=== PATIENT | female | born 1950 | race Caucasian/White ===

== ENCOUNTER → 2017-05-04 | Outpatient (CLI) | payer OTHER ==
--- NOTE | 2017-05-04 11:25 | RAD ---
Indication pain. AP oblique and lateral views of the left knee were obtained. No bony abnormality is seen
--- NOTE | 2017-05-04 11:29 | RAD ---
Indication pain. History of injury 3 years previously. AP oblique and lateral views of the left ankle were obtained. No bony abnormality is seen
--- NOTE | 2017-05-04 11:30 | RAD ---
Indication pain. Difficulty ambulating. AP and frog leg views of the left hip were obtained. No bony abnormality is seen.
--- NOTE | 2017-05-04 11:35 | RAD ---
Indication pain. AP and lateral views of the left femur were obtained. No bony abnormality is seen
--- NOTE | 2017-05-04 11:37 | RAD ---
Indication pain. History of fracture 3 years previously. AP oblique and lateral views of the left foot were obtained. There is very slight deformity involving the fifth metatarsal neck which would be compatible with a healed fracture. No acute or additional bony finding is seen.
== END | disposition home or self-care (01) ==
LOC: DXRAD 10:58
PROVIDERS: ATTEND Family Medicine
DX: M21.962 Unspecified acquired deformity of left lower leg (principal); M25.552 Pain in left hip; M79.672 Pain in left foot; M25.562 Pain in left knee; M79.605 Pain in left leg; R26.2 Difficulty in walking, not elsewhere classified
CPT/HCPCS: 73502; 73552; 73562; 73610; 73630